=== PATIENT | female | born 1975 | race Two or more races ===

== ENCOUNTER 2024-12-14 07:26 | Outpatient (CLI) | payer OTHER ==
[~2024-12-14 07:26] MED LIST: ALPRAZOLAM0.5 MG PO; BACLOFEN5 MG PO; DICLOFENAC POTA50 MG PO; ZANAFLEX2 M1 PO
== END 2024-12-14 07:28 | disposition home or self-care (01) ==
LOC: MRI 07:26
PROVIDERS: ATTEND Physical Medicine & Rehabilitation
DX: M50.20 Other cervical disc displacement, unspecified cervical region (principal); M48.02 Spinal stenosis, cervical region
CPT/HCPCS: 72141